=== PATIENT | male | born 1960 | race Caucasian/White ===

== ENCOUNTER 2016-10-16 19:04 | Emergency (ER) | payer MEDICARE ==
[~2016-10-16] VITALS: Ht 182.9 cm; Wt 72.0 kg
[2016-10-16 19:11] VITALS: BP 128/91; RESP 16; TEMP 98.3; O2SAT 95
--- NOTE | 2016-10-16 20:10 | PD ---
HPI Chief Complaint: Fall Time Seen by Provider: 20:04 Travel History International Travel<30 days: No Contact w/Intl Traveler<30days: No Traveled to known affect area: No History of Present Illness HPI Patient comes in complaining of left lateral ankle pain is throbbing like in nature without radiation began 2 days ago after slipping and falling in the shower. Patient reports that he had a fracture back in August of this year and is to be nonweightbearing on that ankle until he follows up with surgeon later this month. Patient is been wearing his cam boot and using his crutches as well as taking Advil and aspirin with minimal to no relief of his symptoms. Patient tried soaking in Epsom salts no improvement of symptoms. Denies anything making the pain worse. Patient denies hitting his head or loss of consciousness. Denies any new numbness or tingling. Patient reports has had tingling distally since initial fracture. Surgery was performed in [facility]. PFSH Past Medical History Musculoskeletal: Yes (chronic neck pain) Social History Tobacco Use: No Substance Use: No Allergies-Medications (Allergen,Severity, Reaction): Coded Allergies: Penicillin (Verified Adverse Reaction, Severe, Itching, 10/16/16) Codeine (Verified Adverse Reaction, Intermediate, Nausea/Vomiting, 10/16/16) Reported Meds & Prescriptions Reported Meds & Active Scripts Active Tramadol (Tramadol HCl) 50 Mg Tab 50 Mg PO Q8H PRN Reported Aspirin 325 Mg Tab 325 Mg PO BID Advair Hfa 12 GM Inh (Fluticasone-Salmeterol 12 GM Inh) 45-21 Mcg/Act Aer 2 Puff INH DAILY Proair Hfa 8.5 GM Inh (Albuterol Sulfate) 90 Mcg/Act Aer 2 Puff INH Q6H PRN 108 mcg/actuation Neurontin (Gabapentin) 800 Mg Tab 800 Mg PO QID Review of Systems Except as stated in HPI: all other systems reviewed are Neg Physical Exam Narrative ENERAL: Well-developed, well nourished, in no acute distress, and non-ill appearing. SKIN: Focused skin assessment warm and dry. Well-healing scars noted left distal lower extremity from recent surgery. No crepitus or signs of infection. HEAD: Atraumatic. Normocephalic. EYES: Pupils equal and round. EOMI. No scleral icterus. No injection or drainage. ENT: No nasal bleeding or discharge. Mucous membranes pink and moist. NECK: Trachea midline. Supple. No nuclear rigidity. CARDIOVASCULAR: Dorsal pulses 2+, intact, and equal bilaterally. Capillary refill less than 2 seconds. RESPIRATORY: No accessory muscle use. No respiratory distress. MUSCULOSKELETAL: No obvious deformities. No clubbing. No cyanosis. No edema. Decreased range of motion left ankle secondary to pain and recent surgery. Ankle : Neagative Perez test. Negative Dianna's sign. Negative squeeze test. Pulses equal BL distal to injury. Capillary refill less than 2 seconds distal to injury and equal BL. Sensation equal BL 1st web space. FROM of toes distal to injury and equal BL. NV intact distal to injury and equal BL. Dorsal pulses equal BL. NEUROLOGICAL: Awake and alert. No obvious cranial nerve deficits. Motor grossly within normal limits. Normal speech. PSYCHIATRIC: Appropriate mood and affect; insight and judgment normal. Data Data Last Documented VS Vital Signs Date Time Temp Pulse Resp B/P Pulse Ox O2 Delivery O2 Flow Rate FiO2 10/16/16 19:11 98.3 16 128/91 95 Room Air Orders Ankle, Complete ([id number]) (10/16/16 ) Ice/Cold Pack (10/16/16 20:03) MDM Medical Decision Making Medical Screen Exam Complete: Yes Emergency Medical Condition: Yes Interpretation(s) X-ray of left ankle reveals radiology shows: Postoperative change of the left ankle Differential Diagnosis Fracture, sprain, contusion, other Narrative Course There is no clinical evidence for acute fracture. There is no clinical evidence to suspect new bony injury by exam. Radiographic examination revealed no acute fracture seen at this time. No obvious ligamental injury or internal derangement is noted at this time. The distal extremity appears neurovascularly intact, without evidence of neurovascular injury nor compartment syndrome. The patient was discharged on pain medication along with sprain and splint care instructions and given warnings for vascular compromise. The patient is to follow up with his Orthopedics. The patient agrees with plan. Patient in no obvious distress upon re-evaluation. All pertinent Radiology result(s) discussed with patient. Patient was asked if they wanted to speak to my attending, which the patient did not wish to do at this time. Any questions/ concerns in reference to patient diagnosis/condition discussed and clarified prior to patient's discharge. Reinforced sheer importance of close follow up with patient's primary physician or primary care clinic and orthopedics. Instructed patient to return to ED immediately, if symptoms return/worsen. Pt showed understanding of above instructions. Further instructions and recommendations were detailed in discharge paperwork. Pt ambulated without difficulty out of ED at discharge with crutches. Diagnosis Primary Impression: Left ankle sprain Qualified Code: S93.402A - Sprain of left ankle, unspecified ligament, initial encounter Patient Instructions: Ankle Sprain (ED), General Instructions Additional Instructions: Follow-up with your primary care physician and orthopedic next week. Take all medication as prescribed. Wear your boot as instructed by orthopedic. Continue to be nonweightbearing on left ankle as instructed by your orthopedic. Apply ice to affected area 20 minutes per hour to decrease pain. Elevate affected ankle whenever possible decreased pain. Return to the emergency department if symptoms get worse. Med/Other Pt SpecificInfo: Prescription(s) given Scripts Tramadol 50 Mg Tab50 Mg PO Q8H PRN (PAIN GREATER THAN 7) #9 TAB Ref 0 Prov:Darrick Ruff MD 10/16/16 Disposition: 01 DISCHARGE HOME Condition: Stable Gage Desai Oct 16, 2016 20:10
[2016-10-16] MEDS ORDERED: ADVA45AE INH (20:22)
[2016-10-16] MEDS ORDERED: NEUR800T PO (20:22)
[2016-10-16] MEDS ORDERED: ALBUAER3 INH (20:22)
[2016-10-16] MEDS ORDERED: ASPI325T PO (20:23)
--- NOTE | 2016-10-16 21:00 | RADRPT ---
EXAM DATE/TIME: 10/16/2016 20:12 [facility] COMPARISON: No previous studies available for comparison. INDICATIONS : Left ankle pain post fall. MEDICAL HISTORY : None. SURGICAL HISTORY : ORIF left ankle. ENCOUNTER: Initial ACUITY: 3 days PAIN SCORE: 6/10 LOCATION: Left ankle FINDINGS: Three view exam was performed of the left ankle. There is screw fixation across comminuted distal fib ular fracture. There is also plate and screw fixation across comminuted distal tibial fracture. There is screw fixation across mid foot tarsal bones. Overall normal alignment at the ankle joint. The abo ve fractures extend intra-articular. Bones are osteopenic. CONCLUSION: 1. Postoperative change of the left ankle as above. Jet Barron MD on October 16, 2016 at 20:56 Board Certified Radiologist. This report was verified electronically.
[2016-10-16] MEDS ORDERED: TRAM50TA PO (21:17)
== END 2016-10-16 22:22 | disposition home or self-care (01) ==
LOC: NEPK 19:04
DX: S93.402A Sprain of unspecified ligament of left ankle, initial encounter (principal); Z79.82 Long term (current) use of aspirin; W18.2XXA Fall in (into) shower or empty bathtub, initial encounter; Y93.E1 Activity, personal bathing and showering; Y92.9 Unspecified place or not applicable
CPT/HCPCS: 73610; 99283

== ENCOUNTER 2016-10-20 18:19 | Emergency (ER) | payer MEDICARE ==
[~2016-10-20] VITALS: Ht 180.3 cm; Wt 72.0 kg
[~2016-10-20 18:19] MED LIST: ADVA45AE INH; ALBUAER3 INH; ASPI325T PO; NEUR800T PO; TRAM50TA PO
[2016-10-20 18:24] VITALS: BP 120/84; PULSE 90; RESP 16; TEMP 98.4; O2SAT 95
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
[2016-10-20] MEDS ORDERED: PERC5TAB12 PO (23:04)
[2016-10-20] MEDS ORDERED: RESP: ALBUTEROL 2.5 MG/IPRATROPIUM 0.5 MG NEB (SCH) NEB ONE (23:15)
--- NOTE | 2016-10-20 23:17 | RADRPT ---
EXAM DATE/TIME: 10/20/2016 22:51 [facility] COMPARISON: No previous studies available for comparison. INDICATIONS : Pt had surgery in August- now having pain and welling after walking on it for two days at work. MEDICAL HISTORY : Carcinoma, colon. Chronic obstructive pulmonary disease. SURGICAL HISTORY : Left ankle repair August 2016 ENCOUNTER: Initial ACUITY: 2 days PAIN SCORE: 7/10 LOCATION: Left Ankle FINDINGS: Three view exam was performed of the left ankle. The patient's head over internal fixation of the dis preet tibia and fibular fractures. The long threaded screw within the fibular fracture. The tibial frac ture has been fixated with an anterior fusion plate multiple interlocking screws. There is no complic ation of the hardware. There 2 screws across the medial midfoot. There is some increased sclerosis along the talar dome. The talonavicular joint is fused CONCLUSION: Status post hardware fixation of the tibial or fibular fractures. No complications except for some in creased sclerosis of the talus. Moncho Soto MD on October 20, 2016 at 23:14 Board Certified Radiologist. This report was verified electronically.
[2016-10-20] MEDS ORDERED: VENTAER INH (23:27)
[2016-10-20] MEDS ORDERED: IBUP-232 PO (23:27)
[2016-10-20] MEDS ORDERED: ACETAMINOPHEN/HYDROcodone 325 MG/5 MG TAB PO ONE (23:30)
[2016-10-21 00:21] VITALS: BP 114/67
== END 2016-10-21 00:30 | disposition home or self-care (01) ==
LOC: NEPC 18:19
DX: J45.909 Unspecified asthma, uncomplicated (principal); G89.18 Other acute postprocedural pain; M79.605 Pain in left leg; J44.9 Chronic obstructive pulmonary disease, unspecified; Z79.82 Long term (current) use of aspirin; Z79.52 Long term (current) use of systemic steroids; Z79.899 Other long term (current) drug therapy; Z88.0 Allergy status to penicillin; Z88.5 Allergy status to narcotic agent
CPT/HCPCS: 73610; 94664; 99284

== ENCOUNTER 2017-06-05 12:41 | Emergency (ER) | payer MEDICARE, OTHER ==
[~2017-06-05] VITALS: Ht 185.4 cm; Wt 75.0 kg
[~2017-06-05 12:41] MED LIST changes: +ASPI-183 PO; -ASPI325T PO; +IBUP-232 PO; +PERC5TAB12 PO; -TRAM50TA PO; +VENTAER INH
[2017-06-05 12:43] VITALS: BP 105/71; PULSE 75; RESP 16; TEMP 98.4; O2SAT 75; O2SAT 99
[2017-06-05] MEDS ORDERED: ERYTOIN10 RIGHT EYE (13:44)
[2017-06-05] MEDS ORDERED: CLIN300C5 PO (13:44)
--- NOTE | 2017-06-05 13:45 | PD ---
HPI Chief Complaint: Eye Problems/Injury Time Seen by Provider: 13:34 Travel History International Travel<30 days: No Contact w/Intl Traveler<30days: No Traveled to known affect area: No History of Present Illness HPI 56-year-old male presents to the emergency department for evaluation of erythema , pain to the right upper eyelid that started 3 days ago. Patient denies any pain unless he touches the area. He denies any visual changes or problems with the eye itself. No fevers or chills. He reports history of colon cancer, lung cancer but is currently in remission. He is not currently on any medications. Moderate severity PFSH Past Medical History Cancer: Yes (colon, lung) COPD: Yes Cerebrovascular Accident: Yes Diminished Hearing: No Musculoskeletal: Yes (chronic neck pain) Respiratory: Yes Past Surgical History Abdominal Surgery: Yes (colon ca, portion of colon removed) Thoracic Surgery: Yes (plumonary lobectomy) Social History Alcohol Use: No Tobacco Use: No (quit 09/2016) Substance Use: No Allergies-Medications (Allergen,Severity, Reaction): Coded Allergies: penicillin G (Unverified Adverse Reaction, Severe, Itching, 11/26/16) codeine (Unverified Adverse Reaction, Intermediate, Nausea/Vomiting, ) Reported Meds & Prescriptions Reported Meds & Active Scripts Active Ventolin Hfa 18 GM Inh (Albuterol Sulfate) 90 Mcg/Act Aer 2 Puff INH Q4-6H PRN Ibuprofen 600 Mg Tab 600 Mg PO Q6H PRN Reported Percocet (Oxycodone-Acetaminophen) 5-325 mg Tab 1-2 Tab PO Q6H PRN Aspirin 325 Mg Tab 325 Mg PO BID Advair Hfa 12 GM Inh (Fluticasone-Salmeterol 12 GM Inh) 45-21 Mcg/Act Aer 2 Puff INH DAILY Proair Hfa 8.5 GM Inh (Albuterol Sulfate) 90 Mcg/Act Aer 2 Puff INH Q6H PRN 108 mcg/actuation Neurontin (Gabapentin) 800 Mg Tab 800 Mg PO QID Review of Systems Except as stated in HPI: all other systems reviewed are Neg Physical Exam Narrative GENERAL: Well-nourished, well-developed male patient, afebrile. SKIN: Focused skin assessment warm/dry. Patient has mild erythema to the right upper eyelid with mild swelling to the lateral edge of the eyelid. PERRLA. EOM intact. ENT: Mucosa pink and moist. No erythema or exudates. No uvular edema. No uvular , palatal, or tonsillar deviation. Airway patent. Nasal turbinates appear normal without nasal blood, purulent drainage or septal hematoma. Bilateral tympanic membranes are clear without erythema or perforation. HEAD: Normocephalic. Atraumatic. EYES: No scleral icterus. No injection or drainage. NECK: Supple, trachea midline. No JVD or lymphadenopathy. CARDIOVASCULAR: Regular rate and rhythm without murmurs, gallops, or rubs. RESPIRATORY: Breath sounds equal bilaterally. No accessory muscle use. GASTROINTESTINAL: Abdomen soft, non-tender, nondistended. MUSCULOSKELETAL: No cyanosis, or edema. Data Data Last Documented VS Vital Signs Date Time Temp Pulse Resp B/P (MAP) Pulse Ox O2 Delivery O2 Flow Rate FiO2 06/05/17 12:43 98.4 75 16 105/71 (82) 99 MDM Medical Decision Making Medical Screen Exam Complete: Yes Emergency Medical Condition: Yes Medical Record Reviewed: Yes Differential Diagnosis Stye versus preseptal cellulitis versus orbital cellulitis Narrative Course 56-year-old male presents to the emergency department for evaluation right upper eyelid swelling and pain that started 3 days ago. Physical exam is consistent with an upper eyelid stye, possible mild preseptal cellulitis. No evidence of orbital cellulitis on exam. Patient will be discharged with a prescription for clindamycin and erythromycin eye ointment. He is instructed to warm, moist compresses with gentle massage and follow-up with an scrap kettle tender if symptoms continue or worsen. He is return here for any acute worsening of symptoms. He verbalizes agreement and understanding. The patient was discharged in stable condition with instructions, including return instructions and follow up instructions. Diagnosis Primary Impression: Stye Qualified Codes: H00.011 - Hordeolum externum right upper eyelid Additional Impression: Preseptal cellulitis of right upper eyelid Referrals: Cleaning Validation Consultant as needed Patient Instructions: Cellulitis (ED), General Instructions, Stye (ED) Additional Instructions: Take clindamycin as directed until gone. Use of erythromycin eye ointment as directed. Warm, moist compresses. Follow-up with an scrap kettle tender if symptoms do not improve or worsen. Return to the emergency department for any acute worsening of symptoms. Med/Other Pt SpecificInfo: Prescription(s) given Scripts Erythromycin Opth Oint (Erythromycin Opth Oint) 5 Mg/Gm Oint 1 APPLIC RIGHT EYE QID for Infection, #1 TUBE 0 Refills Prov: Nolvia Sykes 06/05/17 Clindamycin (Clindamycin) 300 Mg Cap 300 MG PO Q6H for Infection for 10 Days, #40 CAP 0 Refills Prov: Nolvia Sykes 06/05/17 Disposition: 01 DISCHARGE HOME Condition: Stable Nolvia Sykes Jun 05, 2017 13:45
== END 2017-06-05 14:01 | disposition home or self-care (01) ==
LOC: NEPK 12:41
DX: H00.011 Hordeolum externum right upper eyelid (principal); L03.213 Periorbital cellulitis; J44.9 Chronic obstructive pulmonary disease, unspecified; Z85.118 Personal history of other malignant neoplasm of bronchus and lung; Z85.038 Personal history of other malignant neoplasm of large intestine; Z87.891 Personal history of nicotine dependence
CPT/HCPCS: 99283

== ENCOUNTER 2017-06-29 01:06 | Emergency (ER) | payer MEDICARE ==
[~2017-06-29] VITALS: Ht 177.8 cm; Wt 72.0 kg
[~2017-06-29 01:06] MED LIST changes: +CLIN300C5 PO; +ERYTOIN10 RIGHT EYE
[2017-06-29 01:21] VITALS: BP 117/70; PULSE 88; RESP 16; TEMP 98.1; O2SAT 97
--- NOTE | 2017-06-29 04:03 | PD ---
HPI Chief Complaint: Skin Problem Time Seen by Provider: 03:32 Travel History International Travel<30 days: No Contact w/Intl Traveler<30days: No Traveled to known affect area: No History of Present Illness HPI Patient is a 56-year-old male presents emergency department for evaluation of abscess in his left axilla. Patient states he recently had an abscess in his right axilla was told he had MRSA and just finished a regimen of clindamycin. He states he noticed another one started to pop up in his left axilla. He also has a history of colon cancer and lung cancer and is concerned that this might be a lymph node from reoccurring cancer. He denies any weight loss, continues to smoke, denies any fevers shortness of breath or chest pain. He states his symptoms of the left axilla have been present for the past week, gradually worsening, context and associated signs and symptoms as above. PFSH Past Medical History Cancer: Yes (colon, lung) COPD: Yes Cerebrovascular Accident: Yes Diminished Hearing: No Musculoskeletal: Yes (chronic neck pain) Respiratory: Yes Immunizations Current: No Past Surgical History Abdominal Surgery: Yes (colon ca, portion of colon removed) Thoracic Surgery: Yes (plumonary lobectomy) Social History Alcohol Use: No Tobacco Use: Yes Substance Use: No Allergies-Medications (Allergen,Severity, Reaction): Coded Allergies: penicillin G (Unverified Adverse Reaction, Severe, Itching, 06/29/17) codeine (Unverified Adverse Reaction, Intermediate, Nausea/Vomiting, ) Reported Meds & Prescriptions Reported Meds & Active Scripts Active Doxycycline Hyclate 100 Mg Cap 100 Mg PO BID 10 Days Review of Systems Except as stated in HPI: all other systems reviewed are Neg Physical Exam Narrative GENERAL: Well-nourished, well-developed patient. SKIN: There is a marble sized abscess superficial to palpation in the left axilla posterior to the anterior axillary fold of the posterior. Very superficial palpation and fluctuant with some overlying erythema. Healing cellulitis over the right axilla. HEAD: Normocephalic. EYES: No scleral icterus. No injection or drainage. NECK: Supple, trachea midline. No JVD or lymphadenopathy. CARDIOVASCULAR: Regular rate and rhythm without murmurs, gallops, or rubs. RESPIRATORY: Breath sounds equal bilaterally. No accessory muscle use. GASTROINTESTINAL: Abdomen soft, non-tender, nondistended. MUSCULOSKELETAL: No cyanosis, or edema. BACK: Nontender without obvious deformity. No CVA tenderness. Data Data Last Documented VS Orders Orders Ed Discharge Order (06/29/17 05:27) MDM Medical Decision Making Medical Screen Exam Complete: Yes Emergency Medical Condition: Yes Differential Diagnosis Abscess, cellulitis, inflamed lymph node is possible but unlikely. Narrative Course Patient room to the emergency department, abscess was drained, will be started on doxycycline she is already finished 1 antibiotic regimen, discussed and is follow-up with his primary care physician and return to ED criteria was also discussed. I discussed with him smoking cessation and that smoking carries with it many adverse health risks. He verbalized understanding and agreement. Patient had initially requested a chest x-ray for screening for lung tumors, this was ordered and the patient ultimately declined this stating he wanted to go home. Procedures Procedure Narrative INCISION AND DRAINAGE OF ABSCESS: The area was prepped and was sterilely draped. The patient declined any subcutaneous lidocaine as he states he does not like needles. Instead he was anesthetized with topical benzocaine peer a number 11 scalpel was used to make a half-cm incision across the area of the abscess. The abscess was drained, complex loculations were broken down, and irrigated with normal saline. Sterile dressing applied. Patient tolerated the procedure quite well despite not having intradermal lidocaine Diagnosis Primary Impression: Abscess Med/Other Pt SpecificInfo: Prescription(s) given Scripts Doxycycline Hyclate (Doxycycline Hyclate) 100 Mg Cap 100 MG PO BID for Infection for 10 Days, #20 CAP 0 Refills Prov: Darrick Ruff MD 06/29/17 Disposition: 01 DISCHARGE HOME Condition: Stable Darrick Ruff MD Jun 29, 2017 04:03
[2017-06-29] MEDS ORDERED: DOXY100C PO (05:27)
== END 2017-06-29 05:46 | disposition home or self-care (01) ==
LOC: NEPC 01:06
DX: L02.412 Cutaneous abscess of left axilla (principal); Z72.0 Tobacco use; Z85.118 Personal history of other malignant neoplasm of bronchus and lung; Z85.038 Personal history of other malignant neoplasm of large intestine
CPT/HCPCS: 10060